=== PATIENT | female | born 1975 | race Asian ===

== ENCOUNTER 2019-02-13 08:13 | Emergency (ER) | payer BC ==
[~2019-02-13] VITALS: Ht 154.9 cm; Wt 60.8 kg
[2019-02-13 08:15] VITALS: Ht 154.9 cm; Wt 60.8 kg
[2019-02-13 10:17] VITALS: BP 121/78
== END 2019-02-13 10:17 | disposition home or self-care (01) ==
LOC: ED 08:13
DX: M77.9 Enthesopathy, unspecified (principal)